=== PATIENT | female | born 1995 | race Caucasian/White ===

== ENCOUNTER 2021-05-01 22:36 | Emergency (ER) | payer MEDICARE, MEDICAID ==
[~2021-05-01] VITALS: Ht 167.6 cm; Wt 93.1 kg
--- NOTE | 2021-05-01 23:40 | NUR ---
patient up for DC at the time this RN was available to assume care. DC instructions given per PA order. Patient left pwd reece [id number] on foot
[2021-05-01 23:45] VITALS: BP 139/82
== END 2021-05-01 23:48 | disposition home or self-care (01) ==
LOC: ER 22:36
DX: F32.9 Major depressive disorder, single episode, unspecified (principal); F41.9 Anxiety disorder, unspecified; Z87.440 Personal history of urinary (tract) infections; Z88.8 Allergy status to other drugs, medicaments and biological substances
CPT/HCPCS: 99283